=== PATIENT | male | born 1945 | race Native Hawaiian/Other Pacific Islander ===

== ENCOUNTER 2017-06-19 09:36 | Outpatient (CLI) | payer OTHER | END 2017-06-19 19:04 | disposition home or self-care (01) | LOC: RESP 09:36 | DX: R06.02 Shortness of breath (principal) | CPT/HCPCS: 94664 ==

== ENCOUNTER → 2017-08-23 12:44 | Outpatient (CLI) | payer OTHER | END | disposition home or self-care (01) | LOC: RAD 12:44 | DX: R06.02 Shortness of breath (principal) ==

== ENCOUNTER 2017-10-13 09:46 | Outpatient (CLI) | payer OTHER | END 2017-10-13 18:00 | disposition home or self-care (01) | LOC: CT 09:46 | DX: J44.9 Chronic obstructive pulmonary disease, unspecified (principal); J84.10 Pulmonary fibrosis, unspecified; K80.20 Calculus of gallbladder without cholecystitis without obstruction; N20.0 Calculus of kidney ==